=== PATIENT | male | born 1950 | race Caucasian/White ===

== ENCOUNTER 2018-08-25 10:00 | Inpatient (IN) | payer OTHER ==
[~2018-08-25 10:00] MED LIST: BACITRACIN 50,000 UNITS/10 ML SYR IRR ONE; BUPIVACAINE 0.25% 30 ML SDV ONE; BUPIVACAINE/EPI 0.25% 30 ML SDV ONE; CHLORHEXIDINE GLUC HIBICLENS 118 ML BTL TP ONE; THROMBIN (BOVINE) 5,000 UNIT VIAL TP ONE; TRANEXAMIC ACID 1,000 MG in NS 100 ML IV ONE
[2018-08-25] MEDS ORDERED: morphINE PF 0.2 MG in SYRINGE INTRATHECAL 1 SYR IT ONE (10:29)
[2018-08-25] MEDS ORDERED: ACETAMINOPHEN 500 MG TAB PO ONE (10:29)
[2018-08-25] MEDS ORDERED: ceFAZolin 2 GM/DEXTROSE 100 ML IV ONE (10:29)
[2018-08-25] MEDS ORDERED: GABAPENTIN 300 MG CAP PO ONE (10:29)
[2018-08-25] MEDS ORDERED: fentaNYL 50 MCG in SYRINGE INTRATHECAL 1 SYR IT ONE (10:29)
[2018-08-25] MEDS ORDERED: LR 1,000 ML IV ONE (10:41)
[2018-08-25] MEDS ORDERED: LIDOCAINE 1% 2 ML INJ ID PRN (10:41)
[2018-08-25] MEDS ORDERED: LIDOCAINE 1% 2 ML INJ ONE (10:57)
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
--- NOTE | 2018-08-25 14:24 | PDHPUP ---
History & Physical Update H&P update statement: This history and physical update is based on an assessment of the patient which was completed after admission or registration (within 24 hours), but prior to the surgery/procedure. H&P update: H&P reviewed & patient examined, no change in patient's condition since H&P completed
[2018-08-25] MEDS ORDERED: MIDAZOLAM 2 MG/2 ML VIAL ONE (14:45)
[2018-08-25] MEDS ORDERED: ROCURONIUM 50 MG/5 ML VIAL ONE (14:52)
[2018-08-25] MEDS ORDERED: fentaNYL 100 MCG/2 ML INJ ONE ×2 (14:52→18:52)
[2018-08-25] MEDS ORDERED: PROPOFOL/EMULSION 500 MG/50 ML BOTTLE IV ONE (14:52)
[2018-08-25] MEDS ORDERED: REMIFENTANIL HCL 1 MG VIAL ONE (14:52)
[2018-08-25] MEDS ORDERED: PROPOFOL 200 MG/20 ML VIAL ONE (14:52)
[2018-08-25] MEDS ORDERED: ONDANSETRON 4 MG/2 ML VIAL ONE (14:53)
[2018-08-25] MEDS ORDERED: LIDOCAINE 2% 5 ML SDV ONE (14:56)
[2018-08-25] MEDS ORDERED: DEXAMETHASONE 4 MG/ML VIAL ONE (15:08)
[2018-08-25] MEDS ORDERED: PHENYLEPHRINE HCL 100 MCG/ML SYR ONE ×2 (15:10→15:53)
[2018-08-25] MEDS ORDERED: ePHEDrine SULFATE 25 MG/5 ML SYR ONE (15:47)
[2018-08-25] MEDS ORDERED: DIAZEPAM 10 MG/2 ML SYR IVP PRN (16:07)
[2018-08-25] MEDS ORDERED: HYDROCODONE/APAP 5/325 TAB PO PRN (16:07)
[2018-08-25] MEDS ORDERED: oxyCODONE IR 5 MG TAB PO PRN (16:07)
[2018-08-25] MEDS ORDERED: ONDANSETRON 4 MG/2 ML VIAL IVP PRN ×2 (16:07→17:59)
[2018-08-25] MEDS ORDERED: LR 500 ML IV PRN (16:07)
[2018-08-25] MEDS ORDERED: PROMETHAZINE HCL 25 MG/ML INJ IVP PRN (16:07)
[2018-08-25] MEDS ORDERED: ACETAMINOPHEN 500 MG TAB PO PRN (16:07)
[2018-08-25] MEDS ORDERED: PHENYLEPHRINE HCL 100 MCG/ML SYR IVP PRN (16:07)
[2018-08-25] MEDS ORDERED: NALOXONE HCL 0.4 MG/ML INJ IVP PRN ×2 (16:07→17:59)
[2018-08-25] MEDS ORDERED: MIDAZOLAM 2 MG/2 ML VIAL IVP ONE (16:07)
[2018-08-25] MEDS ORDERED: PHENYLEPHRINE 10 MG/ML SDV ONE (16:42)
[2018-08-25] MEDS ORDERED: diphenhydrAMINE 25 MG CAP PO PRN (17:59)
[2018-08-25] MEDS ORDERED: BISACODYL 10 MG SUPP PR PRN (17:59)
[2018-08-25] MEDS ORDERED: MAGNESIUM HYDROXIDE 30 ML UDCUP PO PRN (17:59)
[2018-08-25] MEDS ORDERED: ONDANSETRON DISINTEGRATING 4 MG TAB PO PRN (17:59)
[2018-08-25] MEDS ORDERED: LACTULOSE 20 GM/30 ML UDCUP PO PRN (17:59)
--- NOTE | 2018-08-25 18:06 | SOAPPROG ---
SOAP Progress Note Assessment/Plan: Assessment: 68 yo M sp L4/5 TLIF Plan: stable to 3N PT/OT LSO brace when out of bed lovenox starts POD #1 please call with neuro changes 08/25/18 18:05 Subjective: + back pain, no leg pain, no weakness. Objective: Vital Signs Temp Pulse Resp BP Pulse Ox 37.3 C 69 16 157/74 H 94 08/25/18 11:51 08/25/18 16:23 08/25/18 16:23 08/25/18 16:23 08/25/18 16:23 Laboratory Results 08/25/18 11:22 somnolent PERRL, EOMI, no facial droop REAGAN x 4 + light touch ICD10 Worksheet Patient Problems: Problems Problem Status Onset Fusion of spine of lumbar region Acute - ICD10 Problem Qualifiers (1) Fusion of spine of lumbar region
[2018-08-25] MEDS: fentaNYL 100 MCG/2 ML INJ IVP PRN ×2 (18:54→19:16)
[2018-08-25] MEDS: NS 1,000 ML IV SCH (20:45)
[2018-08-25] MEDS: FAMOTIDINE 20 MG TAB PO SCH (22:09)
[2018-08-25] MEDS: POLYETHYLENE GLYCOL 3350 17 GM PKT PO SCH (22:10)
[2018-08-25] MEDS: SENNOSIDES/DOCUSATE SODIUM TAB PO SCH (22:10)
--- NOTE | 2018-08-25 22:12 | GOP ---
[f rep st] OPERATIVE REPORT DATE OF OPERATION: 08/25/2018 SURGEON: Maximo Jackson MD NEUROSURGEON: Maximo Jackson MD TYPEWRITER MECHANIC: KUN Underwood. ANESTHESIA: General endotracheal. PREOPERATIVE DIAGNOSIS: 1. Grade 1 unstable spondylolisthesis at the L4-5 level. 2. Severe lateral recess and foraminal impingement. 3. Intractable low back pain and right lower extremity radicular symptoms. 4. Failed conservative care. POSTOPERATIVE DIAGNOSIS: 1. Grade 1 unstable spondylolisthesis at the L4-5 level. 2. Severe lateral recess and foraminal impingement. 3. Intractable low back pain and right lower extremity radicular symptoms. 4. Failed conservative care. PROCEDURE PERFORMED: 1. Mini open exposure for right-sided far lateral transpedicular decompression at the L4-5 level wit h L4-5 posterior nonsegmental (pedicle screw and axle device) fixation and posterolateral fusion with local autograft and bone morphogenic protein. 2. L4-5 posterior/transforaminal lumbar interbody fusion with 2 structural PEEK interbody spacers, l ocal autograft and bone morphogenic protein. 3. Use of intraoperative microscopy, fluoroscopy, and computer volumetric stereotactic navigation wi th intraoperative neurophysiologic testing. 4. Injection of intrathecal narcotic analgesics and subcutaneous and intramuscular local anesthesia for postoperative pain control. FINDINGS: ESTIMATED BLOOD LOSS: Estimated 75 cc. INDICATIONS: The patient is a 68-year-old male with intractable back pain and right lower extremity radicular symptoms secondary to a grade 1 spondylolisthesis with hypermobility/instability and severe lateral recess and foraminal impingement requiring destabilizing decompression and fixation. DESCRIPTION OF PROCEDURE: After informed consent was obtained, the patient was taken to the operatin g room and placed in the prone position on the Mahesh table. The lumbosacral area was prepped and d raped in a sterile fashion. After fluoroscopic localization, the correct levels of the subcutaneous and intramuscular tissues were infiltrated with local anesthesia. A midline linear incision was then created over the L4-5 spinous processes. This was carried down to the fascial layer, which was then incised using monopolar electrocautery and carried in the subfascial plane along the spinous process es and lamina bilaterally. Intraoperative fluoroscopy was again utilized to verify the correct level s. Following this, the dissection was carried out laterally over the facet joints. The microscope w as then brought in and a far lateral transpedicular decompression was performed under high-power micr oscopy using the [employer] drill system, matchstick fluted bur, and Kerrison rongeurs. There was sever e lateral recess and foraminal impingement that required very meticulous dissection for approximately 2-3 times as long as normal. Eventually, I achieved an excellent decompression and then brought the [employer] neuronavigational system in and using computer volumetric stereotactic navigation, pedicle s crews were placed on the right at the L4 and L5 levels. Each individual screw was tested neurophysio logically with monopolar electrostimulation and interpretation of the potentials by the surgeon. A r od was then placed and secured under distraction, during which time a complete diskectomy was perform ed with preparation of the endplates and placement of 2 structural PEEK interbody spacers, local auto graft, and bone morphogenic protein for an L4-5 posterior/transforaminal lumbar interbody fusion. Th e screw and marybeth system were then placed at a slight amount of compression in order to facilitate bony union and to minimize the potential for posterior graft migration. An axial device was then placed in lieu of left-sided pedicle screws in order to maximize the bony surface area for the posterolatera l fusion on the left side and to avoid the additional risks and complications for pedicle screws on t hat side. Following this, the remaining lamina and facet joint on the left side were extensively dec orticated and the residual local autograft, along with bone morphogenic protein was placed out latera lly for posterolateral fusion at the L4-5 level. 200 mcg of Duramorph, along with 50 mcg of fentanyl were injected intrathecally for postoperative pain control. After re-verification of good position of the screws, marybeth, interspinous process clamp, and interbody spacers using biplanar fluoroscopy. A drain was placed. The subcutaneous and intramuscular tissues were re-infiltrated with local anesthes ia and the wound was closed in a layered fashion using interrupted Vicryl sutures, followed by Steri- Strips on the skin. COMPLICATIONS: None. DISPOSITION: The patient is currently in the process being repositioned for extubation. /[id number]/MODL
[2018-08-25] MEDS: ceFAZolin 2 GM/DEXTROSE 100 ML IV SCH (23:22)
[2018-08-25] MEDS: oxyCODONE IR 5 MG TAB PO PRN (23:25)
[2018-08-26 05:01] LABS: PLATELET COUNT 219 10^3/uL (150-400)
[2018-08-26] MEDS: NS 1,000 ML IV SCH (05:30)
[2018-08-26] MEDS: ENOXAPARIN 40 MG/0.4 ML SYR SC SCH (07:52)
[2018-08-26] MEDS: POLYETHYLENE GLYCOL 3350 17 GM PKT PO SCH ×3 (07:52→21:28)
[2018-08-26] MEDS: SENNOSIDES/DOCUSATE SODIUM TAB PO SCH ×2 (07:53→21:26)
[2018-08-26] MEDS: oxyCODONE IR 5 MG TAB PO PRN ×3 (07:53→17:15)
[2018-08-26] MEDS: FAMOTIDINE 20 MG TAB PO SCH ×2 (07:53→21:23)
[2018-08-26] MEDS: ceFAZolin 2 GM/DEXTROSE 100 ML IV SCH (07:54)
--- NOTE | 2018-08-26 08:11 | PDMN ---
Medical Necessity Medical necessity: [facility] IP only surgery; cpt 24565 L4/5 TLIF
--- NOTE | 2018-08-26 09:00 | SOAPPROG ---
SOAP Progress Note Assessment/Plan: Assessment: POD #1 sp L4/5 TLIF. Doing well. Slight increase in tingling in top of right foot, otherwise no new deficits or changes Plan: Lovenox to start today. Continue BLAINE drain Needs lumbar xrays today PT/OT 08/26/18 08:57 08/26/18 08:59 Subjective: Lying in bed, comfortable. Awake, alert and pleasant. Objective: Vital Signs Temp Pulse Resp BP Pulse Ox 36.8 C 72 18 113/52 L 93 08/26/18 07:28 08/26/18 07:28 08/26/18 07:28 08/26/18 07:28 08/26/18 07:28 Laboratory Results 08/26/18 04:32 08/26/18 04:32 08/25/18 08/26/18 08/27/18 05:59 05:59 05:59 Intake Total 2900 Output Total 1100 Balance 1800 Neuro: ADAM, sens +LT, with increased tingling from baseline in top of right foot 5/5 throughout Dressing: CDI BLAINE: 150 ml ICD10 Worksheet Patient Problems: Problems Problem Status Onset Fusion of spine of lumbar region Acute
[2018-08-26] MEDS: FUROSEMIDE 20 MG TAB PO SCH (11:10)
[2018-08-26] MEDS: METHOCARBAMOL 750 MG TAB PO PRN ×2 (11:10→17:15)
[2018-08-26] MEDS: LISINOPRIL 20 MG TAB PO SCH (11:11)
[2018-08-26] MEDS: GABAPENTIN 300 MG CAP PO SCH ×3 (12:06→21:23)
--- NOTE | 2018-08-26 13:17 | CPEKG ---
Test Reason : OPEN Blood Pressure : / mmHG Vent. Rate : 070 BPM Atrial Rate : 070 BPM P-R Int : 118 ms QRS Dur : 131 ms QT Int : 403 ms P-R-T Axes : -30 075 122 degrees QTc Int : 435 ms Incomplete analysis due to missing data in precordial lead(s) Sinus rhythm Right bundle branch block Repol abnrm suggests ischemia, diffuse leads Missing lead(s): V6 Confirmed by Rick Gordillo ([id number]) on 08/26/2018 1:16:47 PM Referred By: BANDAR LEW Confirmed By:Rick Gordillo
--- NOTE | 2018-08-26 13:17 | CPEKG ---
Test Reason : OPEN Blood Pressure : / mmHG Vent. Rate : 073 BPM Atrial Rate : 070 BPM P-R Int : 144 ms QRS Dur : 130 ms QT Int : 400 ms P-R-T Axes : -12 074 067 degrees QTc Int : 441 ms Sinus rhythm Supraventricular bigeminy Right bundle branch block Nonspecific T abnormalities, lateral leads Confirmed by Rick Gordillo ([id number]) on 08/26/2018 1:16:59 PM Referred By: BNADAR LEW Confirmed By:Rick Gordillo
[2018-08-26] MEDS ORDERED: PNEUMOC 13-VAL CONJ-DIP CRM/PF 0.5 ML SYR (PREVNAR 13) IM ONE (14:57)
--- NOTE | 2018-08-26 15:09 | ASMTCMCOM ---
CM Note CM Note Notes: Pt had planned L4/5 TLIF, resides with spouse in [place]. OT rec home, PT rec home/outpatient. Anticipate pt will d/c when medically stable, no CM d/c needs identified CM available for changes/needs. Date Signed: 08/26/2018 03:09 PM Electronically Signed By:MICHAEL Ya
[2018-08-26] MEDS: metFORMIN HCL 500 MG TAB PO SCH (17:14)
[2018-08-26] MEDS: ATORVASTATIN CALCIUM 40 MG TAB PO SCH (21:23)
[2018-08-27] MEDS: oxyCODONE IR 5 MG TAB PO PRN ×4 (04:30→23:48)
[2018-08-27] MEDS: METHOCARBAMOL 750 MG TAB PO PRN ×3 (04:30→23:48)
[2018-08-27] MEDS: HYDROmorphONE/DILAUDID 1 MG/ML INJ IVP PRN ×2 (06:47→11:48)
--- NOTE | 2018-08-27 07:52 | SOAPPROG ---
SOAP Progress Note Assessment/Plan: Assessment: 68 yo M POD #2 L4/5 TLIF Plan: stable and doing well overall :) post op x-rays look great PT/OT LSO brace when out of bed lovenox/scd/tereso for dvt prophylaxis please call with neuro changes discharge when pain improved 08/25/18 18:05 08/27/18 07:51 Subjective: + back pain, no hip pain, no leg pain or weakness. Objective: Vital Signs Temp Pulse Resp BP Pulse Ox 37.3 C 73 17 127/57 H 90 L 08/27/18 07:23 08/27/18 07:23 08/27/18 07:23 08/27/18 07:23 08/27/18 07:23 Laboratory Results 08/26/18 04:32 08/26/18 04:32 08/26/18 08/27/18 08/28/18 05:59 05:59 05:59 Intake Total 2900 400 Output Total 1100 730 Balance 1800 -330 AAOX4, +FC PERRL, EOMI, no facial droop 5/5 + light touch C/D/I ICD10 Worksheet Patient Problems: Problems Problem Status Onset Fusion of spine of lumbar region Acute - ICD10 Problem Qualifiers (1) Fusion of spine of lumbar region
[2018-08-27] MEDS: metFORMIN HCL 500 MG TAB PO SCH ×2 (08:37→18:29)
[2018-08-27] MEDS: GABAPENTIN 300 MG CAP PO SCH ×3 (08:39→21:54)
[2018-08-27] MEDS: SENNOSIDES/DOCUSATE SODIUM TAB PO SCH ×2 (08:40→21:55)
[2018-08-27] MEDS: FUROSEMIDE 20 MG TAB PO SCH (08:42)
[2018-08-27] MEDS: FAMOTIDINE 20 MG TAB PO SCH ×2 (08:44→21:54)
[2018-08-27] MEDS: ENOXAPARIN 40 MG/0.4 ML SYR SC SCH (08:46)
[2018-08-27] MEDS: POLYETHYLENE GLYCOL 3350 17 GM PKT PO SCH ×3 (08:46→21:55)
[2018-08-27] MEDS: LISINOPRIL 20 MG TAB PO SCH (08:47)
[2018-08-27] MEDS: ACETAMINOPHEN 325 MG TAB PO PRN (11:43)
[2018-08-27] MEDS: ATORVASTATIN CALCIUM 40 MG TAB PO SCH (21:54)
[2018-08-28] MEDS: HYDROmorphONE/DILAUDID 1 MG/ML INJ IVP PRN (02:28)
[2018-08-28 07:46] VITALS: BP 112/51
--- NOTE | 2018-08-28 07:59 | SOAPPROG ---
SOAP Progress Note Assessment/Plan: Assessment: 68 yo M POD #3 L4/5 TLIF Plan: stable and doing well overall :) post op x-rays look great PT/OT LSO brace when out of bed lovenox/scd/tereso for dvt prophylaxis dc home today please call with neuro changes discharge when pain improved 08/25/18 18:05 08/27/18 07:51 08/28/18 07:59 Subjective: back pain improving, no leg pain, no weakness. Objective: Vital Signs Temp Pulse Resp BP Pulse Ox 36.8 C 68 17 112/51 L 96 08/28/18 07:44 08/28/18 07:44 08/28/18 07:44 08/28/18 07:44 08/28/18 07:44 Laboratory Results 08/26/18 04:32 08/26/18 04:32 08/27/18 08/28/18 08/29/18 05:59 05:59 05:59 Intake Total 400 500 Output Total 730 2360 300 Balance -330 -2360 200 AAOx4, +FC PERRL, EOMI, no facial droop 5/5 + light touch C/D/I ICD10 Worksheet Patient Problems: Problems Problem Status Onset Fusion of spine of lumbar region Acute - ICD10 Problem Qualifiers (1) Fusion of spine of lumbar region
[2018-08-28] MEDS: LISINOPRIL 20 MG TAB PO SCH (08:48)
[2018-08-28] MEDS: GABAPENTIN 300 MG CAP PO SCH (08:49)
[2018-08-28] MEDS: metFORMIN HCL 500 MG TAB PO SCH (08:49)
[2018-08-28] MEDS: FAMOTIDINE 20 MG TAB PO SCH (08:49)
[2018-08-28] MEDS: FUROSEMIDE 20 MG TAB PO SCH (08:50)
[2018-08-28] MEDS: ENOXAPARIN 40 MG/0.4 ML SYR SC SCH (08:51)
[2018-08-28] MEDS: POLYETHYLENE GLYCOL 3350 17 GM PKT PO SCH (09:02)
[2018-08-28] MEDS: SENNOSIDES/DOCUSATE SODIUM TAB PO SCH (09:02)
[2018-08-28] MEDS: ACETAMINOPHEN 325 MG TAB PO PRN (09:03)
[2018-08-28] MEDS: METHOCARBAMOL 750 MG TAB PO PRN (09:03)
[2018-08-28] MEDS ORDERED: PNEUMOC 13-VAL CONJ-DIP CRM/PF 0.5 ML SYR (PREVNAR 13) IM ONE (10:02)
[2018-08-28] MEDS: oxyCODONE IR 5 MG TAB PO PRN (11:00)
[2018-09-14] MEDS ORDERED: PHENYLEPHRINE 10 MG/ML SDV ONE (00:55)
[2018-09-14] MEDS ORDERED: ePHEDrine SULFATE 25 MG/5 ML SYR ONE (00:55)
== END 2018-08-28 11:07 | disposition home or self-care (01) | DRG 455 ==
LOC: F3N 10:00
PROVIDERS: ADMIT Neurological Surgery; ATTEND Neurological Surgery
PROC: 0SG00AJ Fusion of Lumbar Vertebral Joint with Interbody Fusion Device, Posterior Approach, Anterior Column, Open Approach (ICD-10-PCS; principal; 2018-08-25 11:45)
PROC: 0SG0071 Fusion of Lumbar Vertebral Joint with Autologous Tissue Substitute, Posterior Approach, Posterior Column, Open Approach (ICD-10-PCS; principal; 2018-08-25 11:45)
PROC: 4A1004G Monitoring of Central Nervous Electrical Activity, Intraoperative, Open Approach (ICD-10-PCS; principal; 2018-08-25 11:45)
PROC: 0ST20ZZ Resection of Lumbar Vertebral Disc, Open Approach (ICD-10-PCS; principal; 2018-08-25 11:45)
PROC: 00NY0ZZ Release Lumbar Spinal Cord, Open Approach (ICD-10-PCS; principal; 2018-08-25 11:45)
PROC: 8E0WXBF Computer Assisted Procedure of Trunk Region, With Fluoroscopy (ICD-10-PCS; principal; 2018-08-25 11:45)
DX: M43.16 Spondylolisthesis, lumbar region (principal); M51.16 Intervertebral disc disorders with radiculopathy, lumbar region; M51.36 Other intervertebral disc degeneration, lumbar region; M51.26 Other intervertebral disc displacement, lumbar region; I10 Essential (primary) hypertension; I45.10 Unspecified right bundle-branch block; G47.33 Obstructive sleep apnea (adult) (pediatric); E11.9 Type 2 diabetes mellitus without complications; E66.3 Overweight; K44.9 Diaphragmatic hernia without obstruction or gangrene; Z87.891 Personal history of nicotine dependence; Z23 Encounter for immunization
CPT/HCPCS: 97116-GP; 97161-GP; 97166-GO; 97530-GP; 97535-GO; C1713; G0009; J0690; J1100; J1170; J1650; J2250; J2274; J2370; J2405; J2704; J3010

== ENCOUNTER 2018-08-30 18:22 | Inpatient (IN) | payer OTHER ==
[2018-08-30] MEDS ORDERED: ONDANSETRON 4 MG/2 ML VIAL IVP ONE (19:04)
[2018-08-30] MEDS ORDERED: NS 1,000 ML IV ONE (19:04)
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
[2018-08-30] MEDS ORDERED: NS 2,400 ML IV ONE (19:06)
[2018-08-30] MEDS ORDERED: ACETAMINOPHEN 500 MG TAB PO ONE (19:06)
[2018-08-30 19:12] LABS: PLATELET COUNT 376 10^3/uL (150-400)
[2018-08-30 19:39] LABS: INR 1.15 (0.83-1.16); PROTIME(PATIENT) 14.2 SEC (12.0-15.0)
[2018-08-30] MEDS ORDERED: ONDANSETRON 4 MG/2 ML VIAL IVP PRN (23:16)
[2018-08-30] MEDS ORDERED: ACETAMINOPHEN 650 MG SUPP PR PRN (23:16)
[2018-08-30] MEDS ORDERED: LORazepam 0.5 MG TAB PO PRN (23:16)
[2018-08-30] MEDS ORDERED: HYDROmorphONE/DILAUDID 1 MG/ML INJ IVP PRN (23:16)
[2018-08-30] MEDS ORDERED: D50W 25 GM/50 ML VIAL IVP PRN (23:24)
[2018-08-30] MEDS ORDERED: ONDANSETRON DISINTEGRATING 4 MG TAB ONE (23:26)
[2018-08-30] MEDS ORDERED: ACETAMINOPHEN 325 MG TAB ONE (23:26)
[2018-08-31] MEDS: ACETAMINOPHEN 325 MG TAB PO PRN ×4 (00:01→21:22)
[2018-08-31] MEDS: NS 1,000 ML IV SCH ×2 (00:01→09:58)
[2018-08-31] MEDS: ONDANSETRON DISINTEGRATING 4 MG TAB PO PRN ×2 (00:02→21:12)
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
[2018-08-31 05:06] LABS: PLATELET COUNT 281 10^3/uL (150-400)
[2018-08-31] MEDS: INSULIN REGULAR HUMAN 100 UNIT/ML UNIT SC SCH ×4 (08:35→20:27)
[2018-08-31] MEDS ORDERED: METHOCARBAMOL 750 MG TAB PO PRN (09:16)
--- NOTE | 2018-08-31 10:52 | ASMTCASEMG ---
Living Arrangements What is your living Answers: With Spouse arrangement? Who do you live with? Type Of Residence What kind of residence do Answers: Apartment you live in? Discharge Plan Comments Coordination Status Comments Notes: Patient is a 68yo male who is being admitted OBS for nausea, vomiting, diarrhea, fever, and dehydration. No therapies ordered at this time. Likely patient will discharge independent. CM will follow. Date Signed: 08/31/2018 10:51 AM Electronically Signed By:Elsa Mccarthy LCSW
[2018-08-31] MEDS: VANCOMYCIN 125 MG/2.5 ML UDL PO SCH ×3 (13:22→21:12)
[2018-08-31] MEDS ORDERED: FUROSEMIDE 40 MG/4 ML VIAL IVP ONE (14:22)
--- NOTE | 2018-08-31 15:54 | HOSPPROG ---
Hospitalist Progress Note Assessment/Plan: 68-year-old male recently underwent a L4-5 TLIF admitted with NVD found to have cdiff. Cdiff-was recently admitted for back surgery. May have gotten prophylactic abx which could have predisposed him to CDI. -start vancomycin PO 125 QID -contact precautions. # nausea, vomiting, diarrhea -I reviewed the plain film obtained today which does not show any ileus or obstruction. Likely his symptoms are related to his cdiff infection. #Fever (Acute) -38.0 F - no further fevers. suspect this is secondary to clostridium infection. #Dehydration (Acute) - IV fluids overnight. # anemia-postoperative. No evidence of active bleeding at this time. Continue to monitor with a.m. CBC. #Benign essential HTN - Hold diuretic in setting of diarrhea, but cont ken, and norvasc. #Dm 2-SSI for now. #JUAN MANUEL - oxygen supplementation p.r.n.. #Chronic pain - continue patient's home medications including Oxy, gabapentin, Robaxin. # HLD-continue statin when med rec Status-post L4-[address] Galdamez earlier today. Fluids- IV saline Lytes- WNl Nutrition- regular diet, he seems to be tolerating it fine PPX-SCDs. ambulate. Cor status-full Dispo- inpatient for cdiff infection. Subjective: abdomen queasy. Objective: Vital Signs Temp Pulse Resp BP Pulse Ox 37.1 C 81 18 127/57 H 94 08/31/18 07:18 08/31/18 07:18 08/31/18 07:18 08/31/18 07:18 08/31/18 07:18 Laboratory Results 08/31/18 04:40 08/31/18 04:40 08/30/18 08/31/18 09/01/18 05:59 05:59 05:59 Intake Total 3300 Balance 3300 PT 14.2 SEC (12.0-15.0) 08/30/18 18:55 INR 1.15 (0.83-1.16) 08/30/18 18:55 - Physical Exam Constitutional: no apparent distress, appears nourished, not in pain Eyes: PERRL, anicteric sclera, EOMI Ears, Nose, Mouth, Throat: moist mucous membranes, hearing normal, ears appear normal, no oral mucosal ulcers Cardiovascular: regular rate and rhythym, no murmur, rub, or gallop Respiratory: no respiratory distress, no rales or rhonchi, clear to auscultation Gastrointestinal: normoactive bowel sounds, soft, non-tender abdomen, no palpable masses Genitourinary: no bladder fullness, no bladder tenderness, no renal bruits Skin: no rashes or abrasions, no fluctuance, no induration Musculoskeletal: full muscle strength, no muscle tenderness, normal joint ROM Neurologic: AAOx3, sensation intact bilaterally Psychiatric: interacting appropriately, not anxious, not encephalopathic, thought process linear Lymph, Heme, Immunologic: no cervical LAD, no supraclavicular LAD ICD10 Worksheet Patient Problems: Problems Problem Status Onset Dehydration Acute Fever Acute Vomiting and diarrhea Acute Fusion of spine of lumbar region Acute
[2018-08-31] MEDS: GABAPENTIN 300 MG CAP PO SCH ×2 (16:17→21:12)
[2018-08-31] MEDS: ATORVASTATIN CALCIUM 40 MG TAB PO SCH (20:26)
--- NOTE | 2018-08-31 21:09 | GCON ---
[f rep st] CONSULTATION NEUROSURGICAL CONSULTATION DATE OF CONSULTATION: 08/31/2018 REASON FOR CONSULTATION: Abdominal pain status post L4-5 lumbar fusion on 08/25/2018. HISTORY OF PRESENT ILLNESS: The patient is a pleasant 68-year-old male who recently underwent an L4- 5 transforaminal lumbar interbody fusion with Dr. Jackson on 08/25/2018. He tolerated the surg ical procedure well and was discharged home uneventfully. On 08/30/2018, the patient presented to [facility] Emergency Department at [facility] complaining of worsening nausea and vomiting as well as diarrhea and chills that started earlier in the day. He was seen in the ER and ultimately admitted t o the floor to the Medicine Service for medical management of his apparent gastroenteritis. The patient is seen on 08/31/2018 in consultation. He is lying comfortably in bed and denies any num bness, tingling, or weakness in his legs. He states that his preoperative back and leg pain have res olved since the surgery. He has not had any difficulty caring for his incision. Yesterday, he was f eeling nauseated with vomiting and diarrhea; today, he is still feeling somewhat nauseated but has denis d no further bowel movement since yesterday afternoon. REVIEW OF SYSTEMS: Negative other than mentioned in the HPI. PHYSICAL EXAMINATION: GENERAL: Pleasant, tired-appearing, 68-year-old male in no apparent distress. HEAD, EYES, EARS, NOSE, AND THROAT: Within normal limits. EXTREMITIES: Within normal limits. Hi s incision is clean, dry, and intact with Steri-Strips remaining intact. There is no erythema or alyssa inage. NEUROLOGIC: He is awake, alert, and oriented x4. Cranial nerves 2 through 12 are intact to gross examination. Speech is fluent. Tongue is midline. Spinal and accessory muscles are intact. He has equal and symmetric strength of the bilateral upper and lower extremities with normal sensatio n in all dermatomal distributions of the bilateral upper and lower extremities. DATA REVIEWED: LAB RESULTS: White blood cell count 6.77, hemoglobin 11.0, hematocrit 33.0, platelet s are 281,000. Sodium 136, potassium 3.9, chloride 106, carbon dioxide 24, BUN 14, creatinine 0.7. Urinalysis is negative for leukocyte esterase or bacteria or white blood cells. Blood cultures are pending. Stool sample is positive for C diff. Abdominal x-ray does not show any evidence of ileus or obstruction. PAST MEDICAL HISTORY: Diabetes, type 2; hypertension; hyperlipidemia; chronic back pain; obstructive sleep apnea. SURGICAL HISTORY: Status post L4-5 TLIF on 08/25/[address] Jackson. IMPRESSION: This is a 68-year-old male who underwent an L4-5 uncomplicated transforaminal lumbar int erbody fusion on 08/25/2018 with resolution of preoperative symptoms who presented on 08/30/2018 with symptoms consistent with gastroenteritis including nausea, vomiting, and diarrhea. Imaging studies of the abdomen demonstrate no evidence of ileus or obstruction; however, the patient is positive for C diff, and he is currently being treated with vancomycin by the Medicine Team. Neurologically, the patient remains intact, stable, and doing well. PLAN: All above issues were discussed with Dr. Jackson on the patient. At this time, we will defer to Medicine for their continued management of this gentleman. We will continue to follow along with his care during his hospitalization. /[id number]/MODL
[2018-09-01] MEDS: VANCOMYCIN 125 MG/2.5 ML UDL PO SCH ×4 (06:47→20:54)
[2018-09-01] MEDS ORDERED: NITROGLYCERIN 0.4 MG BTL SL PRN (07:29)
[2018-09-01] MEDS ORDERED: MAG HYDROX/AL HYDROX/SIMETH 30 ML UDCUP PO PRN (07:44)
--- NOTE | 2018-09-01 08:11 | NEUSURGPN ---
Assessment/Plan: Assessment: 68 yr old male s/p L4-[address] Galdamez on 08/25/18, returned/ admitted with Cdiff Plan: -Appreciate Medicines management for GI -Doing well in regards to lumbar surgery -Neurosurgery will sign off and have patient follow up as scheduled for post operative visit -Discussed patient with Dr Galdamez -Please call neurosurgery with any questions/concerns Subjective: denies any back or leg symptoms Objective: AxOx4 MAEx4 09/04 BLE Incision CDI with steri strips Neuro Check Frequency: per routine Urinary Catheter in Place: No - Physician Discussed Patient with : Renetta Neurosurgery Physical Exam - Vitals, I&O, Labs I and O 08/31/18 09/01/18 09/02/18 05:59 05:59 05:59 Intake Total 3300 450 Balance 3300 450 Weight 81.647 kg Intake: Oral (ml) 300 450 IV Infused (ml) 3000 Ns 1,000 ml @ 100 mls/hr 600 IV CONT HUSEYIN Rx#: [id number] Other: Intake Quantity Yes Sufficient Number of Voids 1 Toilet 2 4 Number of Stools Toilet 0 1 Vital Signs Temp Pulse Resp BP Pulse Ox 37.2 C 110 H 12 133/62 H 95 09/01/18 06:27 09/01/18 06:27 09/01/18 06:27 09/01/18 06:27 09/01/18 06:27 Laboratory Results 08/31/18 04:40 08/31/18 04:40 ICD10 Worksheet Patient Problems: Problems Problem Status Onset Dehydration Acute Fever Acute Vomiting and diarrhea Acute Fusion of spine of lumbar region Acute
--- NOTE | 2018-09-01 08:12 | HOSPPROG ---
Hospitalist Progress Note Assessment/Plan: Hospitalist night float note Notified by RN that patient with complaints of substernal chest pain and noted irregular rhythm. Patient states that pain started approximately 1:00 a.m. And worse with lying down. Improved with inspiration. Patient reports that his pain worsened at approximately 6:30 a.m. When he was given a dose of oral vancomycin. This reproduced the exact same chest pain. EKG was showing normal sinus rhythm with bigeminy and RBBB with report changes. Reviewed EKG from August 2018 appears similar. Patient placed on lunchroom monitor. After evaluating patient suspect either development of some esophagitis or esophageal spasm given his pain exacerbated immediately after ingesting oral Vanco. Will check a troponin. Maalox is been ordered. [facility] Villarreal who will follow up. Objective: Vital Signs Temp Pulse Resp BP Pulse Ox 37.2 C 110 H 12 133/62 H 95 09/01/18 06:27 09/01/18 06:27 09/01/18 06:27 09/01/18 06:27 09/01/18 06:27 Laboratory Results 08/31/18 04:40 08/31/18 04:40 08/31/18 09/01/18 09/02/18 05:59 05:59 05:59 Intake Total 3300 450 Balance 3300 450 PT 14.2 SEC (12.0-15.0) 08/30/18 18:55 INR 1.15 (0.83-1.16) 08/30/18 18:55 ICD10 Worksheet Patient Problems: Problems Problem Status Onset Dehydration Acute Fever Acute Vomiting and diarrhea Acute Fusion of spine of lumbar region Acute
[2018-09-01] MEDS: GABAPENTIN 300 MG CAP PO SCH ×3 (09:34→20:54)
[2018-09-01] MEDS: PANTOPRAZOLE SODIUM 40 MG TAB PO SCH (09:34)
[2018-09-01] MEDS: INSULIN REGULAR HUMAN 100 UNIT/ML UNIT SC SCH ×4 (09:39→21:40)
[2018-09-01] MEDS ORDERED: METOPROLOL TARTRATE 5 MG/5 ML INJ IVP ONE (10:36)
[2018-09-01] MEDS: LISINOPRIL 20 MG TAB PO SCH (11:13)
[2018-09-01] MEDS ORDERED: METOPROLOL TARTRATE 25 MG TAB PO ONE (12:17)
[2018-09-01] MEDS ORDERED: ASPIRIN 81 MG CHEWABLE TAB PO ONE (12:24)
--- NOTE | 2018-09-01 12:52 | ECHO ---
[email or web address] [address] [address] Main: [phone] Echocardiography Examination Transthoracic Name: MARY CHICAS MR#: [id number] Study Date: 09/01/2018 Study Time: 10:29 AM Date of : 1950 Age: 68 year(s) Height: 170.2 cm (67 in.) Weight: 81.65 kg (180 lb.) BSA: 1.93 m2 Gender: Male Examination: Echo Contrast: Image Quality: Adequate Rhythm: Heart Rate: BP: 116 mmHg/48 mmHg Indication: Chest Pain, Abnormal EKG Procedure Staff Referring Physician: Accountant Controller: Olga Vidal [facility] Reading Physician: Rodney Bolden MD Requesting Provider: Ordering Physician: Yunior Pisano NP Indication: Chest Pain, Abnormal EKG Measurements Chambers AV/MV Label Value Normal Value Label Value Normal Value LVOTd 1.7 cm (1.9cm - 2.1cm) AV PGmax 18 mmHg LVOT VTI 27.8 cm (18cm - 22cm) AV PGmean 11 mmHg LVDd, 2D 4.1 cm (4.2cm - 5.9cm) AV Vmax 2.12 m/s LVDs, 2D 2.6 cm (2.1cm - 4cm) NIK (VTI) 1.4 cm2 IVSd, 2D 1.3 cm (0.6cm - 1.1cm) MV E Vmax 0.9 m/s LVPWd, 2D 1.3 cm (0.6cm - 1cm) MV A Vmax 0.95 m/s LVEF, 2D 67 % (54% - 74%) MV E/A 0.95 LVOT PGmean 4 mmHg MV E/E' lateral 10.5 LVOT Vmean 1 m/s MV E/E' septal 16.2 (0.45 - 1.25) RVDd, 2D 2.5 cm (1.9cm - 3.8cm) MV DT 257 ms LADs, 2D 3.9 cm (3cm - 4cm) MV E' septal 0.06 m/s RA Area 19.8 cm2 MV PHT 0.07 s Additional Vessels MVA PHT 3 cm2 Label Value Normal Value MV E' lateral 0.09 m/s AoAsc 3.2 cm MV E/E' mean 12 AoRoot, 2D 3.5 cm (1.4cm - 2.6cm) MV PHT 74 ms IVC 1.1 cm (1.2cm - 2.3cm) MV E' mean 0.08 m/s TV/PV Label Value Normal Value Patient: MARY CHICAS Study Date: 09/01/2018 Page 1 of 3 10:29 AM RA Pressure 5 mmHg PV PGmax 5 mmHg PV Vmax, Caliper 1.13 m/s (0.6m/s - 0.9m/s) Conclusions The patient has age appropriate changes of the heart valves with mild mitral regurgitation. No significant valvular heart disease is noted. The patient has LVH as noted with no resting segmental wall motion abnormalities. A cause for the patient's chest pain is not identified on the basis of this study. These findings do not rule out flow limiting obstruction of the coronary circulation. Left Ventricle: Left ventricle is normal in size. Normal global systolic left ventricular function. EF range is estimated at 60 % - 65 %. There is mild concentric left ventricular hypertrophy. There are no regional wall motion abnormalities. Findings Left Ventricle: Left ventricle is normal in size. Normal global systolic left ventricular function. EF range is estimated at 60 % - 65 %. There is mild concentric left ventricular hypertrophy. There are no regional wall motion abnormalities. Right Ventricle: Normal size right ventricle. Right ventricular systolic function is normal. Left Atrium: The left atrium is mildly dilated. Right Atrium: The right atrium is mildly dilated. Mitral Valve: Mitral valve appears structurally normal. Mild mitral regurgitation. No mitral valve stenosis. There is mitral annular calcification. Aortic Valve: Aortic leaflets are structurally normal. No significant aortic valve regurgitation. There is no aortic stenosis. Aortic leaflets exhibit calcification. Tricuspid Valve: Pulmonary artery pressure cannot be assessed due to inadequate TR signal. Pulmonic Valve: Pulmonic valve not well visualized. Aorta: The aortic root size in 2D measures 3.5 cm. The ascending aorta measures 3.2 cm. Aorta Measurements AoRoot, 2D is 3.5 cm. IVC: The inferior vena cava is normal in size. Pericardium: Trivial pericardial effusion. Exam Details Procedure Ordered: Echo Procedure Status: Routine study Image Quality: Adequate Facility Location: Bedside Patient: MARY CHICAS Study Date: 09/01/2018 Page 2 of 3 10:29 AM (No Signature Object) Patient: MARY CHICAS Study Date: 09/01/2018 Page 3 of 3 10:29 AM [id number]
--- NOTE | 2018-09-01 16:13 | PDMN ---
Medical Necessity Medical necessity: Change to IP, as of 08/31/18, per MD & MCG M-170 Gastroenteritis; los >2 mn for ongoing management of Cdiff with N/V/D & dehydration; requiring further monitoring, abx, IV antiemetics & IVFs; hx recent L4/5 TLIF
--- NOTE | 2018-09-01 16:57 | HOSPPROG ---
Hospitalist Progress Note Assessment/Plan: 68-year-old male recently underwent a L4-5 TLIF admitted with NVD found to have cdiff. Developed subsequent chest pain on hospital day two that precluded discharge. Chest pain- Heart score at least 4, ECG with no acute ischemia but not normal, trops negative. cardiology consulted,and patient to undergo MPI/Chanel in am. Cdiff-was recently admitted for back surgery. May have gotten prophylactic abx which could have predisposed him to CDI. -cont vancomycin PO 125 QID -contact precautions. # nausea, vomiting, diarrhea -I reviewed the plain film obtained today which does not show any ileus or obstruction. Likely his symptoms are related to his cdiff infection and seem to have resolved. #Fever (Acute) -38.0 F - no further fevers. suspect this is secondary to clostridium infection. #Dehydration (Acute) - IV fluids overnight. # anemia-postoperative. No evidence of active bleeding at this time. Continue to monitor with a.m. CBC. #Benign essential HTN - Hold diuretic in setting of diarrhea, but cont ken, and norvasc. #Dm 2-SSI for now. #JUAN MANUEL - oxygen supplementation p.r.n.. #Chronic pain - continue patient's home medications including Oxy, gabapentin, Robaxin. # HLD-continue statin when med rec Status-post L4-[address] Galdamez and cleared. Fluids- IV saline Lytes- WNl Nutrition- regular diet, he seems to be tolerating it fine PPX-SCDs. ambulate. Cor status-full Dispo- inpatient for cdiff infection and chest pain rule out Subjective: chest still hurts, no sob, orthopnea or other symptoms. Objective: Vital Signs Temp Pulse Resp BP Pulse Ox 37.2 C 65 16 103/50 L 90 L 09/01/18 14:57 09/01/18 14:57 09/01/18 14:57 09/01/18 14:57 09/01/18 14:57 Laboratory Results 09/01/18 07:58 08/31/18 09/01/18 09/02/18 05:59 05:59 05:59 Intake Total 450 Balance 450 PT 14.2 SEC (12.0-15.0) 08/30/18 18:55 INR 1.15 (0.83-1.16) 08/30/18 18:55 - Physical Exam Constitutional: no apparent distress, appears nourished, not in pain Eyes: PERRL, anicteric sclera, EOMI Ears, Nose, Mouth, Throat: moist mucous membranes, hearing normal, ears appear normal, no oral mucosal ulcers Cardiovascular: regular rate and rhythym, no murmur, rub, or gallop Respiratory: no respiratory distress, no rales or rhonchi, clear to auscultation Gastrointestinal: normoactive bowel sounds, soft, non-tender abdomen, no palpable masses Genitourinary: no bladder fullness, no bladder tenderness, no renal bruits Skin: no rashes or abrasions, no fluctuance, no induration Musculoskeletal: full muscle strength, no muscle tenderness, normal joint ROM Neurologic: AAOx3, sensation intact bilaterally Psychiatric: interacting appropriately, not anxious, not encephalopathic, thought process linear Lymph, Heme, Immunologic: no cervical LAD, no supraclavicular LAD ICD10 Worksheet Patient Problems: Problems Problem Status Onset Dehydration Acute Fever Acute Vomiting and diarrhea Acute Fusion of spine of lumbar region Acute
[2018-09-01] MEDS: NS 1,000 ML IV SCH (18:29)
--- NOTE | 2018-09-01 19:52 | GCON ---
[f rep st] CONSULTATION CARDIOLOGY CONSULTATION INDICATION FOR CARDIOLOGY CONSULTATION: Chest pain and abnormal electrocardiogram. REQUESTING PHYSICIAN: Dr. Noel Gibbons of hospitalist services. HISTORY OF PRESENT ILLNESS: The patient is a pleasant 68-year-old male. He reports significant past history that includes hypertension; hyperlipidemia; borderline diabetes; previous smoker, reporting quitting 6 months ago; known history of nonflow-limiting carotid artery disease, per patient, based o ff an ultrasound exam 5 years ago; and chronic pain. He also has significant history of undergoing L 4-L[address] TL[address] Dr. Jackson on August 25. He reported he is residing in a hotel down here after re covering from his surgery. He does state that he had been doing well postoperatively, but developed nausea, vomiting, and diarrhea. As this worsened, he returned to the hospital on August 31 for evaluatio n. There, he was diagnosed with C difficile, which he has been started on vancomycin. He has also h ad blood cultures done, which preliminary results after 36 hours have shown no growth. He reports he has been feeling better, still continuing to have pain from his surgical site, but reports no histor y of chest pain or pressure until approximately early this morning, which he reports came on suddenly and describes midsternal heaviness with no associated shortness of breath but positive with diaphore sis and nausea. Symptoms did last for approximately an hour or so, then dissipated. An electrocardi ogram was done at that time which noted sinus rhythm with right bundle branch block with what appears to be premature atrial contractions, noted repolarization abnormality, T-wave changes in lateral velia ds suggesting potential ischemia. He did have a troponin level drawn, which was noted to be at 0.012 . He was placed on continuous ice skater, and since then he has been noticed to maintain sinus rhythm, but has been noted to have multiple runs of PSVT which appear to be potentially atrial tach, up to 13 beats. He is asymptomatic. At the time of my examination, he reports he is currently chest pain-free, reporting no shortness of breath. Denies any orthopnea, PND, palpitations, lightheadedne ss, near-syncope, or syncopal events. He reports no symptoms suggestive of TIA or CVA. Patient is w ith significant cardiac risk factors that include age, hypertension, hyperlipidemia, peripheral vascu lar disease (carotid artery disease), diabetes, and reporting family history of coronary artery disea se with Father dying of an GA at age 63. PAST MEDICAL HISTORY: Includes hypertension; hyperlipidemia; diabetes type 2; peripheral vascular di sease (patient reported 5 years ago having ultrasound and was told that he had mild blockage of carot id arteries); previous smoker, quitting 6 months ago; JUAN MANUEL; and chronic back pain. PAST SURGICAL HISTORY: Includes L4-L5 TLIF. FAMILY HISTORY: Positive for coronary artery disease, reporting Father of an GA at age 63. SOCIAL HISTORY: He is retired. He lives in [place]. He is . He has 1 daughter who is aries schafer and he has not seen in over 30 years. He is a former smoker, quitting 6 months ago. He rarely uses alcohol. Denies any illicit drug use. ALLERGIES: No known drug allergies. MEDICATIONS AT HOME: Include Lasix 20 mg p.o. daily p.r.n., atorvastatin 40 mg p.o. h.s., MiraLAX 17 g p.o. daily, Robaxin 750 mg p.o. q.i.d. p.r.n., lisinopril 20 mg p.o. daily, gabapentin 300 mg p.o. t.i.d., oxycodone 5 to 10 mg p.o. q.4 hours p.r.n., metformin 1000 mg p.o. b.i.d., amlodipine 10 mg p.o. daily. REVIEW OF SYSTEMS: A 10-point review of systems done on this patient was all negative except as ment ioned above. PHYSICAL EXAMINATION: GENERAL APPEARANCE: Medium-built, mildly overweight male. He is al ert and oriented to person, place, time, and situation. He appears to be under no acute distress at this time. CURRENT VITAL SIGNS. Blood pressure of 147/65. Heart rate of 78, sinus rhythm on the mo nitor with noted episodes of PSVT. Respirations are 16. Saturating 91% on room air. Temperature of 37.4 degrees Celsius. HEENT: Head is normocephalic. Lips and tongue are pink and moist. NECK: T rachea is midline ,+2 carotid pulses bilateral. +2 carotid bruits noted, both carotids. No signific ant JVD. RESPIRATORY: Lungs are clear bilateral. No rhonchi, rales or wheezes. No accessory muscl e use. No intercostal muscle retraction noted. CARDIAC: Regular rate, regular rhythm. S1, S2. 1/ 6 systolic murmur noted along left sternal border. No rubs or gallops noted. ABDOMEN: Soft, nonten la. Bowel sounds x4 quadrants. No organomegaly. No palpable masses. SKIN: [place], warm, dry. No cyanosis, no clubbing, no peripheral edema. VASCULAR: +2 carotids bilateral, +2 radials bilateral, +1 dorsal pedal and posterior tibial pulses bilateral. LABORATORY STUDIES: C difficile positive as mentioned above. Blood cultures as mentioned above. On admission, 08/31, CBC of 6.77, hemoglobin of 11.0, hematocrit of 33.0, platelet count of 98. Today sodium 135, potassium 3.7, chloride 105, CO2 21, BUN 10, creatinine 0.7, glucose 122, calcium 8.4. T roponin 0.012. Repeated troponin done at noon today was less than 0.012. Magnesium 1.9. TSH of 0.1 72. STUDIES: Electrocardiogram as mentioned above. Noting in comparison to electrocardiogram done on Ap ril 25, this is unchanged except for premature beats. Echocardiogram done today noting normal LV sys tolic function with EF of 60% to 65% with mild concentric LVH. No regional wall motion abnormalities . LA was mildly dilated. RA was mildly dilated. Mild MR. There was mild mitral annular calcificat ion. Aortic leaflets exhibit calcification but no aortic stenosis. No significant aortic insufficie ncy. Trivial pericardial effusion which is not mechanically restricted. ASSESSMENT AND PLAN: 1. Chest pain: The patient is reporting episode of chest pain, midsternal, this morning with no ass ociated symptoms of shortness of breath but positive for nausea and diaphoresis. Patient with a sign ificantly abnormal electrocardiogram which potentially shows lateral ischemia. Echocardiogram noting normal LV systolic function with no wall motion abnormalities. Patient with significant cardiac ris k factors of age, hypertension, hyperlipidemia, peripheral vascular disease, diabetes, previous smoke r, and family history of coronary artery disease. The patient has had no further chest pain since th is morning and has had 2 negative troponins, plan on repeating 3rd troponin in 6 hours. If it remain s negative, then he should be evaluated by undergoing Lexiscan MPI study, which if it does come up po sitive, then coronary angiogram should be done. Until then, he has had a dose of aspirin. I have st arted him on a beta marcy of metoprolol tartrate. 2. Paroxysmal supraventricular tachycardia, noted on continuous cardiac monitoring: The patient is asymptomatic of this. The patient is noted to have mildly dilated atriums bilateral. Patient with a significantly low TSH level. Will start him on metoprolol as mentioned above. Continue monitoring him on continuous cardiac monitoring. Will order T3 and T4 levels. 3. Patient with reported history of carotid artery disease: Patient with significant carotid bruits bilateral, multiple cardiac risk factors as mentioned above. Patient has been started on aspirin th erapy. Continue on statin therapy for secondary risk prevention. Blood pressure appears well contro lled. Will have ultrasound done for evaluation of his stenosis. 4. Hypertension: Patient with significant past history of hypertension. He has been resumed on all his home medications except for furosemide, due to his nausea and diarrhea. Will add metoprolol tar trate, as mentioned above. Continue monitoring, adjust as needed. 5. Hyperlipidemia: The patient has been resumed on home statin therapy. We will plan on getting a lipid panel in a.m. for further evaluation. 6. Nausea, vomiting, diarrhea: Patient has been noted to be positive for Clostridium difficile, has been started on vancomycin by Hospitalist Services, defer to their specialty. 7. Chronic back pain: Patient is status post transforaminal lumbar interbody fusion. Will defer pa in management to Neurosurgery. I have also spoken to Neurosurgery's FISH BONING MACHINE FEEDER and discussed if patient need s full anticoagulation or antiplatelet therapy. They report it is fine for him to proceed if necessa ry if he is deemed to need a cath or coronary angiogram. 8. Diabetes: Defer treatment to Hospitalist Services. Thank you for this consultation. We will be glad to follow along with you. I have discussed the pat ient also with Dr. Gibbons of Hospitalist Services and Dr. Mas. /[id number]/MODL
[2018-09-01] MEDS: ATORVASTATIN CALCIUM 40 MG TAB PO SCH (20:52)
[2018-09-01] MEDS: METOPROLOL TARTRATE 25 MG TAB PO SCH (20:52)
[2018-09-02] MEDS: VANCOMYCIN 125 MG/2.5 ML UDL PO SCH ×4 (06:17→21:23)
[2018-09-02] MEDS: INSULIN REGULAR HUMAN 100 UNIT/ML UNIT SC SCH ×4 (08:19→21:24)
[2018-09-02] MEDS ORDERED: REGADENOSON 0.4 MG/5 ML SYR IVP ONE (11:00)
--- NOTE | 2018-09-02 11:59 | CPR ---
[f rep st] NONINVASIVE CARDIAC PROCEDURE REPORT REPORT TITLE: LEXISCAN INJECTION OF LEXISCAN MPI STUDY [facility] W[facility]ER: Dr. Dr. Yao INDICATION: chest pressure, abnormal electrocardiogram, patient unable to run on treadmill. PRE: After obtaining informed consent, ensuring patient's n.p.o. status of caffeine for greater than 12 hours, patient placed on electrocardiogram. Initial EKG shows sinus rhythm, with right bundle br anch block, borderline ST depression in lateral leads, frequent PACs. Initial blood pressure 136/54, saturation 91% on room air. Patient denies of chest pain, pressure, or symptoms suggesting of ische yenni. INJECTION: Patient was given Lexiscan slow IV push, followed by nuclear isotope. Within 1 minute of injection, patient's heart rate increased up to 96 beats per minute, was noted at sometimes to have bigeminal PACs, but no other significant EKG changes. Patient did report shortness of breath and lilly e mild flushing sensation post injection. Within 3 minutes he was given caffeinated brother age, and within 5 minutes, all symptoms subsided, no other significant EKG changes. Within 5 minutes post in jection, heart rate returned back to 83. No significant EKG changes with injection. Final blood pre ssure 142/54, saturating 98% on room air. IMPRESSION: 68-year-old male with episode of chest pressure the night before, abnormal EKG, and mult iple cardiac risk factors to include hypertension, hyperlipidemia, peripheral vascular disease, diabe ephraim, previous smoker, and family history of coronary artery disease, being evaluated for possible car diac ischemia and unable to run on treadmill due to previous back surgery. Patient underwent Lexisca n injection with shortness of breath and flushing sensation, but no chest pressure. No significant E KG changes, except more frequent premature atrial contractions. After 5 minutes, he was pain free, E KG back to baseline, vital signs are stable. He is currently finishing his post-stress imaging pictu res in nuclear medicine at this time. /[id number]/MODL
[2018-09-02] MEDS: METOPROLOL TARTRATE 25 MG TAB PO SCH ×2 (12:13→20:56)
[2018-09-02] MEDS: PANTOPRAZOLE SODIUM 40 MG TAB PO SCH (12:13)
[2018-09-02] MEDS: LISINOPRIL 20 MG TAB PO SCH (12:13)
[2018-09-02] MEDS: NS 1,000 ML IV SCH (12:16)
[2018-09-02] MEDS: GABAPENTIN 300 MG CAP PO SCH ×3 (12:51→20:56)
[2018-09-02] MEDS ORDERED: fentaNYL 100 MCG/2 ML INJ ONE ×2 (13:39→16:03)
[2018-09-02] MEDS ORDERED: LIDOCAINE 1% 300 MG/30 ML SDV ONE (13:39)
[2018-09-02] MEDS ORDERED: MIDAZOLAM 2 MG/2 ML VIAL ONE ×2 (13:39→15:47)
[2018-09-02] MEDS ORDERED: DIAZEPAM 5 MG TAB PO ONE (13:40)
[2018-09-02] MEDS ORDERED: FAMOTIDINE 20 MG TAB PO ONE (13:40)
[2018-09-02] MEDS ORDERED: NS 1,000 ML IV ONE (13:40)
[2018-09-02] MEDS ORDERED: ASPIRIN EC 325 MG TAB PO ONE ×2 (13:40→14:13)
[2018-09-02] MEDS ORDERED: diphenhydrAMINE 25 MG CAP PO ONE ×2 (13:40→14:12)
[2018-09-02] MEDS ORDERED: IOPAMIDOL (ISOVUE-370) 150 ML BTL IV ONE ×2 (13:41→15:27)
--- NOTE | 2018-09-02 14:12 | ASMTCMCOM ---
CM Note CM Note Notes: 09/02/2018 Case Management Note Met w/pt and to discuss d/c needs. Kandi can be reached at [phone]. Pt is currently staying in [facility] in [facility] with plans to visit brother in law in [place] and then sister in [place]. Pt has to be home in [place] by September 06 per Kandi. Pt has follow up with PCP Dr. John Goldsmith at the [facility]. There are no therapy evals ordered today. Case Management d/c poc: independent with follow up as directed. Case Management available if needs change. Date Signed: 09/02/2018 02:09 PM Electronically Signed By:Dianne Chamorro RN
[2018-09-02] MEDS ORDERED: DIAZEPAM 5 MG TAB ONE (14:13)
[2018-09-02] MEDS ORDERED: FAMOTIDINE 20 MG TAB ONE (14:13)
[2018-09-02 14:17] LABS: PLATELET COUNT 294 10^3/uL (150-400)
[2018-09-02] MEDS ORDERED: oxyCODONE IR 5 MG TAB ONE (14:22)
[2018-09-02 14:26] LABS: INR 1.15 (0.83-1.16); PROTIME(PATIENT) 14.2 SEC (12.0-15.0)
[2018-09-02] MEDS: oxyCODONE IR 5 MG TAB PO PRN ×2 (14:26→20:56)
--- NOTE | 2018-09-02 14:45 | PDCARPN ---
Cardiology Progress Note Chief Complaint: Patient reports he is hungry. Assessment/Plan: Assessment: 68-year-old male with significant past history that includes hypertension, hyperlipidemia borderline diabetes previous smoker carotid artery disease and family history coronary artery disease (father dying of an age 63), admitted on 08/31/2018 for nausea, vomiting, diarrhea. Positive C diff. Recent L4-L5 TLIF on August 25. 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 Electrocardiogram done at time pressure, showing sinus rhythm, right bundle branch block, T-wave abnormalities suggesting possible lateral ischemia. On continuous cardiac monitoring noting sinus rhythm frequent PACs and runs of PSVT (atrial tachycardia). Echo 09/01/2018 noting normal LV size with normal LV systolic function, EF 60 65%, mild concentric LVH, no wall motion abnormalities, LA is mildly dilated, RA is mildly dilated, mild MR, mitral annular calcification, aortic root 3.5 cm , ascending aorta 3.2 cm. Negative troponin x3. Patient has significant carotid bruits on examination. Carotid ultrasound showing 50- 60 bilateral 2 external carotid artery stenosis with no internal carotid artery flow limiting stenosis 09/02/2018: Patient reports no chest pain or pressure throughout the night. MPI study showing normal LV systolic function with EF 62%, with possible myocardial ischemia involving inferior wall. Continues cardiac monitoring showing less runs of SVT since starting on metoprolol. TSH was noted to be 0.172. Plan: 1. Chest pressure: Patient reporting 1 episode of chest pressure 2 nights ago. Negative troponin x3. Echocardiogram showing no wall motion abnormalities. Patient with abnormal MPI study suggesting of ischemia. Patient with multiple cardiac risk factors that include age, sex, hypertension, previous smoker, hypertensive lipidemia, peripheral vascular disease, and family history of coronary artery disease with father dying of DC at age 63. Due to his multiple cardiac risk factors, abnormal MPI study, and abnormal electrocardiogram, is felt best that he be further evaluated for cardiac ischemia, undergoing coronary angiogram. Risks and benefits of this procedure were explained to both his and patient, they verbalize understanding and are wanting to proceed. We have checked with Neurosurgery, and they have okayed him for any anticoagulation needed. 2. PSVT: Patient noted to have runs of PSVT, appear to be atrial tachycardia, started on beta-marcy of metoprolol. Improvement overnight with less arrhythmias. Potassium and magnesium within normal limits. Low TSH. 3. Hypertension: Blood pressure within normal limits. Continue a regular current medication regime. 4. Hyperlipidemia: LDL 46 on labs today, showing adequate suppression. Continue on home dose of atorvastatin. 5. Carotid artery stenosis: Non flow limiting based off echocardiogram. Continue anti-platelet therapy. Continue statin therapy as mentioned above. Modify risk factors. 6. Low TSH: Defer to hospital services further evaluation 7. Diabetes: Patient on sliding scale insulin. Defer to hospital services. 8. Status post L4-5 TLIF: Defer to Neurosurgery. 9. C diff: Being hydrated due to nausea, vomiting, diarrhea. Appears fairly euvolemic. Patient has been started on oral vancomycin. 09/02/18 14:42 Subjective: Patient reports no further episodes of chest pain. Reports no shortness of breath, denies of any palpitations. Reviewed/Discussed With: hospitalist (Dr Torres), other (Dr Yao) Objective: Vital Signs (8 Hrs) Temp Pulse Resp BP Pulse Ox 09/02/18 11:51 37.1 C 67 18 155/59 H 94 09/02/18 08:00 37.3 C 62 18 121/54 H 90 L Intake/Output (24 Hrs) 09/01/18 09/02/18 09/03/18 05:59 05:59 05:59 Intake Total 450 1007 Balance 450 1007 Intake: Oral (ml) 450 IV Infused (ml) 1007 Ns 1,000 ml @ 100 mls/hr 1007 IV CONT HUSEYIN Rx#: [id number] Other: Intake Quantity Yes Sufficient Number of Voids Toilet 4 1 Number of Stools Toilet 1 1 Result Diagrams: 09/02/18 14:05 09/02/18 03:06 Cardiac Labs: Cardiac Lab Results (72 Hrs) 09/01/18 09/01/18 09/01/18 18:04 13:05 07:58 Troponin I < 0.012 < 0.012 0.012 - Physical Exam Constitutional: WDWN, no apparent distress Ears, Nose, Mouth, Throat: moist mucous membranes Cardiovascular: pulses symmetric bilat, carotid bruit (+2 bilateral), No jugular vein distention Peripheral Pulses: 1+: dorsalis-pedis (R), dorsalis-pedis (L), 2+: carotid (R), carotid (L) Respiratory: clear to auscultate bilat, no crackles, no wheezes Gastrointestinal: normoactive bowel sounds, no tenderness, no masses Skin: warm Neurologic: AAOx3 Psychiatric: cooperative, interactive, following commands ICD10 Worksheet Patient Problems: Problems Problem Status Onset Fusion of spine of lumbar region Acute Vomiting and diarrhea Acute Dehydration Acute Fever Acute
[2018-09-02] MEDS ORDERED: CLOPIDOGREL BISULFATE 75 MG TAB ONE (15:17)
[2018-09-02] MEDS ORDERED: BIVALIRUDIN 250 MG/5 ML VIAL IV ONE ×2 (15:23→16:03)
[2018-09-02] MEDS ORDERED: NITROGLYCERIN 1,500 MCG/15 ML VIAL MISC ONE (15:23)
[2018-09-02] MEDS ORDERED: ATROPINE SULFATE 1 MG/10 ML SYR ONE (15:27)
[2018-09-02] MEDS ORDERED: hydrALAZINE 20 MG/ML VIAL ONE (16:12)
--- NOTE | 2018-09-02 16:23 | HOSPPROG ---
Hospitalist Progress Note Assessment/Plan: The patient is a 68-year-old male with PMH C diff colitis, chronic low back pain who was admitted for abdominal pain, developed chest pain, and underwent abnormal stress test which led to cardiac catheterization with stent placement. ASSESSMENT/PLAN: CAD, s/p stents x 3 Angina, resolved Abd pain, resolved N/V, resolved Recent C diff colitis, resolving on Tx Overweight HTN HLD JUAN MANUEL DM2 Chronic low back pain -Monitor overnight w/ telemetry. -on statin, lisinopril, metoprolol. -Received 1 dose ASA/Plavix this afternoon. Continue DAP x 1 yr. -If no acute o/n complications, may DC to home in AM. VTE prophylaxis: SCDs Code Status: Full code Status: Inpatient Disposition: Med tele with discharge anticipated tomorrow ____ SUBJECTIVE: Patient was seen after his cardiac catheterization. He feels well , no complaints. OBJECTIVE: Physical Exam: General: The patient is an overweight male who is alert and in no acute distress. HEENT: normocephalic, extraocular movements intact, conjunctivae clear. Mucous membranes moist. Neck: trachea midline, no visible masses. CV: +S1/S2, RRR, no MRG. Resp: unlabored, CTAB no RRW. Abd: soft and nondistended. Musculoskeletal: Normal muscle tone/bulk. Neuro: cranial nerves II - XII grossly intact. Intact gross motor and sensory function. Psych: Appropriate mood and appropriate affect. Skin: No pallor. No petechiae. Heme/lymph: No peripheral edema at bilateral lower extremities. Labs/Imaging/Other Tests: Personally reviewed/interpreted. Objective: Vital Signs Temp Pulse Resp BP Pulse Ox 37.1 C 67 18 155/59 H 94 09/02/18 11:51 09/02/18 11:51 09/02/18 11:51 09/02/18 11:51 09/02/18 11:51 Laboratory Results 09/02/18 14:05 09/02/18 14:05 09/01/18 09/02/18 09/03/18 05:59 05:59 05:59 Intake Total 450 1007 Balance 450 1007 PT 14.2 SEC (12.0-15.0) 09/02/18 14:05 INR 1.15 (0.83-1.16) 09/02/18 14:05 - Time Spent With Patient Time Spent with Patient: greater than 35 minutes Time Spent with Patient: Greater than 35 minutes spent on this patients care, greater than 50% of time spent counseling, educating, and coordinating care regarding the above mentioned plan. ICD10 Worksheet Patient Problems: Problems Problem Status Onset Dehydration Acute Fever Acute Vomiting and diarrhea Acute Fusion of spine of lumbar region Acute
--- NOTE | 2018-09-02 17:05 | CPIP ---
[f rep st] INVASIVE CARDIAC PROCEDURE DATE OF PROCEDURE: 09/02/2018 INDICATION FOR PROCEDURE: Chest pain, abnormal EKG, positive stress test. PROCEDURE: 1. Nonselective left groin sheathogram. 2. Bilateral coronary angiography, left heart catheterization, left ventriculogram. 3. Percutaneous coronary intervention of mid and proximal right coronary artery utilizing 2 Synergy drug-eluting stents. 4. Percutaneous coronary intervention of mid left anterior descending, utilizing Synergy drug-elutin g stent. HISTORY: This is a 68-year-old male with history of recent back surgery. Postprocedure, the patient has been having chest pain and had what looked like a grossly abnormal baseline EKG. He underwent a stress test today which showed inferior ischemia. Given these findings, patient consented for invas katie angiography. DESCRIPTION OF PROCEDURE: After informed consent, the patient was brought to [facility], where the left maximiliano in was prepped and draped in sterile fashion. Using lidocaine and a short 6-Marshallese sheath, the left common femoral artery was verified angiographically. Through the 6-Marshallese sheath, a JL4 catheter was advanced in the left coronary artery. Images of the left coronary artery revealed normal left main. Left circumflex had ostial 30% disease. The circumflex gave off marginal arteries which were healt hy and free of disease proximally and turned into a larger bifurcating marginal artery distally, whic h was healthy and free of disease and terminated in an AV groove circumflex, which was healthy and fr ee of disease. The LAD was a long vessel, wrapped around the apex. In the midportion of the LAD at its take-off of the septal coper hand, there was a focal 70% lesion. There were multiple diagonal ar teries coming off the LAD, which were healthy and free of disease. After this image was obtained, th e JL4 catheter was removed. The JR4 catheter was advanced to the right coronary artery. Images of t he right coronary artery revealed normal ostial RCA. Proximal RCA had a 70% lesion, followed by anot her area of 80% to 90% lesion, followed by a 3rd lesion in the vessel of approximately 60% to 70%. D istally, the RPDA appeared to be healthy and free of disease. The RPLS had 30% to 40% disease in the superior branch. After these images were obtained, the JR4 catheter was removed. A pigtail cathete r was advanced into the left ventricle. EDP 16 mmHg. Left ventriculogram was taken in the REEVES proje ction showed an EF of 65% with no wall motion abnormalities. No pullback gradient between the LV and the aorta. Pigtail catheter was removed over a 0.035 wire. INTERVENTIONAL REPORT: At this time, the patient was initiated on Angiomax bolus and drip. A JR4 6- Marshallese guide was advanced to the right coronary artery. A Choice PT wire was placed down to the RPDA . Predilatation commenced with a 3.5 x 12 balloon across all 3 tandem lesions in the RCA at 10 atmos pheres. After this was performed, we then attempted to proceed with the placement of a long 3.0 x 38 mm drug-eluting stent. This was not successful. We placed a 2nd nayeli wire in and then re-attempte d placing the wire, which was successful. The nayeli wire was removed, and the stent was deployed at 16 atmospheres. We then proceeded to place a 3.5 x 16 stent across the proximal lesion, which was ov erlapping the previous stent, and this was deployed at 16 atmospheres. We then utilized a 3.5 x 12 n oncompliant balloon to post-dilate the mid section of the stented area at 14 atmospheres. After this was performed, the balloon was removed. Angiogram was obtained which showed excellent patency of th e stented areas with no evidence of dissection or perforation. At this time, the wire was removed. The guide catheter was removed. The EBU 3.5 guide catheter was advanced to the left coronary artery. A Choice PT wire was placed down the LAD. A 3.5 x 12 balloon was then advanced, and dilatation of the lesion in the mid LAD was performed at 10 atmospheres. After this was performed, angiographic im ages were obtained, which showed improved patency of the area. We then proceeded with attempted plac ement of a 3.5 x 12 Synergy drug-eluting stent. However, this was unsuccessful to pass. We then eliza zonia a GuideLiner and then placed the stent, which then would successfully traverse this area. We dep loyed the stent at 16 atmospheres. After deployment, angiogram was obtained which showed excellent p atency of the stented area with no evidence of dissection or perforation. At this time, the wire was removed. The guide catheter was removed. The left groin was closed with a 6-Marshallese Angio-Seal. Th e patient tolerated the procedure well with no complications. IMPRESSION: 1. Successful percutaneous coronary intervention of high-grade proximal mid right coronary artery di sease with 2 Synergy drug-eluting stents. 2. Successful percutaneous coronary intervention of mid left anterior descending with 1 Synergy drug -eluting stent. 3. Mild disease in the left circumflex system. 4. Normal ejection fraction. PLAN: The patient will have 3 hours of bedrest. Will remain on aspirin and Plavix for at least 1 ye ar's time. /[id number]/MODL
[2018-09-02] MEDS ORDERED: ATROPINE SULFATE 1 MG/10 ML SYR IVP PRN (17:21)
[2018-09-02] MEDS ORDERED: HYDROCODONE/APAP 5/325 TAB PO PRN (17:21)
[2018-09-02] MEDS: ATORVASTATIN CALCIUM 40 MG TAB PO SCH (20:57)
[2018-09-03 04:47] LABS: PLATELET COUNT 304 10^3/uL (150-400)
[2018-09-03] MEDS: VANCOMYCIN 125 MG/2.5 ML UDL PO SCH ×2 (06:27→11:48)
[2018-09-03] MEDS ORDERED: MAGNESIUM SULF 1 GM/DEXTROSE 100 ML IV ONE (07:41)
[2018-09-03] MEDS: PANTOPRAZOLE SODIUM 40 MG TAB PO SCH (08:01)
[2018-09-03] MEDS: GABAPENTIN 300 MG CAP PO SCH (08:01)
[2018-09-03] MEDS: LISINOPRIL 20 MG TAB PO SCH (08:01)
--- NOTE | 2018-09-03 08:10 | PDCARPN ---
Cardiology Progress Note Chief Complaint: Patient reports he like to go home. Assessment/Plan: Assessment: 68-year-old male with significant past history that includes hypertension, hyperlipidemia borderline diabetes previous smoker carotid artery disease and family history coronary artery disease (father dying of an age 63), admitted on 08/31/2018 for nausea, vomiting, diarrhea. Positive C diff. Recent L4-L5 TLIF on August 25. Episode of chest pressure slip sheeter 09/01. Electrocardiogram done at time pressure, showing sinus rhythm, right bundle branch block, T-wave abnormalities suggesting possible lateral ischemia. On continuous cardiac monitoring noting sinus rhythm frequent PACs and runs of PSVT (atrial tachycardia). Echo 09/01/2018 noting normal LV size with normal LV systolic function, EF 60 65%, mild concentric LVH, no wall motion abnormalities, LA is mildly dilated, RA is mildly dilated, mild MR, mitral annular calcification, aortic root 3.5 cm , ascending aorta 3.2 cm. Negative troponin x3. Patient has significant carotid bruits on examination. Carotid ultrasound showing 50- 60 bilateral 2 external carotid artery stenosis with no internal carotid artery flow limiting stenosis. 09/02/2018 left heart catheterization was done. RCA had 3 lesions, 70% proximal, 80% proximal mid, 90% mid lesion the RCA. Patient also had a proximal midportion 70% lesion the LAD. PCI was done 3 0 x 38 and 3 5 x 16 synergy ANN in the mid to proximal RCA. A 3 5 x 12 synergy ANN implanted in the mid proximal LAD. No complications. 09/03/2018: Patient reports no chest pain pressure symptoms suggesting of ischemia throughout the night. Continues cardiac monitoring showing sinus rhythm, patient noting to have more runs of atrial tachycardia asthma rates to 120 BPM. He is asymptomatic. Laboratories today showing 11, creatinine 0 7 magnesium 1.8 sodium 134, potassium 4.1. Plan: 1. CAD: Patient reporting episode chest pressure. Abnormal MPI, coronary angiogram findings stenosis LAD and RCA. 2 ANN implantation in to RCA, 1 ANN implantation to the LAD yesterday. No complications. Patient reporting no chest pain pressure symptoms suggesting of ischemia. Patient has been started on dual anti-platelet therapy of aspirin and clopidogrel. He will need to stay on for minimum of a year. He continues on atorvastatin, adequate suppression of LDL. Patient is scheduled to see Cardiology at his home in [place] on September 06. 2. PSVT: Patient noted to have runs of PSVT, appear to be atrial tachycardia, started on beta-marcy of metoprolol. Initially improved, this morning noting more runs. TSH is low. Magnesium 1.8. Will supplement magnesium, increased metoprolol to 50 mg p.o. Twice daily. Consideration of patient having an outpatient Holter monitoring, this can be ordered at his primary [facility] in [place]. Would recommend with increased metoprolol this morning, he be monitored this morning, if he is doing fine may be discharged later this afternoon. 3. Hypertension: BP with systolic running in 150s this morning. Increase metoprolol tartrate as mentioned above, no change the rest of his medication regime. 4. Hyperlipidemia: Laboratory studies show shown adequate suppression of LDL. Continue on home dose of atorvastatin. 5. Carotid artery stenosis: Non flow limiting based off echocardiogram. Continue anti-platelet therapy. Continue statin therapy as mentioned above. Would recommend patient have a repeated ultrasound of carotids in 6 months for re-evaluation. This can be done by his primary [facility] in [place]. 6. Low TSH: Defer to hospital services further evaluation 7. Diabetes: Patient on sliding scale insulin. Defer to hospital services. 8. Status post L4-5 TLIF: Defer to Neurosurgery. 9. C diff: Being hydrated due to nausea, vomiting, diarrhea. Appears fairly euvolemic. Patient has been started on oral vancomycin. Patient potentially will be discharged today. Post cardiac catheterization with PCI teaching Done him, including monitoring for signs of infection, bleeding precautions, and activity restrictions. Importance of dual anti- platelet therapy have been expressed to the patient, especially with recent ANN implantation. Patient is planning to be followed up with his primary [facility] in [place] on September 06. 09/03/18 08:09 Subjective: He denies of any chest pressure or pain. Reports no shortness of breath, denies of any orthopnea, PND, palpitations, lightheadedness, near-syncope or syncopal events. Reviewed/Discussed With: other (Dr Hayden) Objective: Vital Signs (8 Hrs) Temp Pulse Resp BP Pulse Ox 09/03/18 08:03 88 150/55 H 09/03/18 07:32 37.1 C 65 12 128/62 H 94 09/03/18 03:14 37.2 C 74 15 145/60 H 94 Intake/Output (24 Hrs) 09/02/18 09/03/1809/04/19 05:59 05:59 05:59 Intake Total 1007 3627 Output Total 1275 Balance 1007 2352 Intake: Oral (ml) 810 IV Infused (ml) 1007 2817 Ns 1,000 ml @ 100 mls/hr 1007 2817 IV CONT HUSEYIN Rx#: [id number] Output: Urine (ml) 1275 Toilet 500 Urinal 775 Other: Number of Voids Toilet 1 Urinal 2 Number of Stools Toilet 1 Result Diagrams: 09/03/18 03:10 09/03/18 03:10 Cardiac Labs: Cardiac Lab Results (72 Hrs) 09/01/18 09/01/18 09/01/18 18:04 13:05 07:58 Troponin I < 0.012 < 0.012 0.012 - Physical Exam Constitutional: WDWN, no apparent distress Ears, Nose, Mouth, Throat: moist mucous membranes Cardiovascular: regular rate and rhythm, systolic murmur (1/6 left sternal border), carotid bruit (+2 bilateral), No jugular vein distention Peripheral Pulses: 1+: dorsalis-pedis (R), dorsalis-pedis (L), 2+: carotid (R), carotid (L) Respiratory: clear to auscultate bilat, no crackles, no wheezes Gastrointestinal: normoactive bowel sounds Skin: no edema, other (Left groin site, catheter insertion site, with no redness , swelling, drainage, or ecchymosis. No hematoma. No auscultated bruit.) Neurologic: AAOx3 Psychiatric: cooperative, interactive, following commands ICD10 Worksheet Patient Problems: Problems Problem Status Onset Fusion of spine of lumbar region Acute Vomiting and diarrhea Acute Dehydration Acute Fever Acute
[2018-09-03] MEDS: INSULIN REGULAR HUMAN 100 UNIT/ML UNIT SC SCH ×2 (08:19→13:26)
[2018-09-03] MEDS ORDERED: ASPIRIN 81 MG CHEWABLE TAB PO SCH (09:00)
[2018-09-03] MEDS ORDERED: CLOPIDOGREL BISULFATE 75 MG TAB PO SCH (09:00)
[2018-09-03] MEDS ORDERED: METOPROLOL TARTRATE 50 MG TAB PO SCH (09:00)
[2018-09-03 11:39] VITALS: BP 132/52
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
--- NOTE | 2018-09-03 15:06 | ASMTDCNOTE ---
Case Management Discharge Discharge Order Complete? Answers: Yes Patient to Obtain Answers: Independently Medications Transportation Arranged Answers: Family/Friends Discharge Comments Notes: 09/03/2018 Case Management Note Pt discharged independent with follow up as directed. Pt and returning to [place] directly from [facility]. Date Signed: 09/03/2018 03:06 PM Electronically Signed By:Dianne Chamorro RN
--- NOTE | 2018-09-03 15:07 | ASDISCHSUM ---
Discharge Information Plan Status:Home with No Needs Medically Cleared to Leave:09/03/2018 Discharge Date:09/03/2018 02:38 PM CM D/C Disposition:Home, Routine, Self-Care ADT D/C Disposition:Home, Routine, Self-Care Projected Discharge Date:09/03/2018 02:38 PM Transportation at D/C:Family Discharge Delay Reason: Follow-Up Date:09/03/2018 02:38 PM Discharge Slot: Final Diagnosis: Placement Information Patient Contact Information Contact Name:FELY Relationship: Address: Work Phone: City: [facility] Phone: [facility]/[employer] Code: Email: Financial Information Financial Class:Medicare Primary Plan Desc:MEDICARE INPATIENT Primary Plan Number:[id number] Secondary Plan Desc:[place] Secondary Plan Number:[id number] Assessment Information LACE LACE Length of stay for Answers: 2 days current admission Acuity / Level of Answers: Yes Care: Did the patient have an inpatient admission? Comorbidities - select Answers: Coronary Artery Disease all that apply Diabetes (uncontrolled or controlled) Opioid dependence / Chronic pain Other Notes: HTN; HLD # of Emergency department Answers: 1-2 visits in the last 6 months Score: 14 Date Signed: 09/03/2018 03:05 PM Electronically Signed By:Dianne Chamorro RN [facility] Initial CM Assessment Living Arrangements What is your living Answers: With Spouse arrangement? Who do you live with? Type Of Residence What kind of residence do Answers: Apartment you live in? Discharge Plan Comments Coordination Status Comments Notes: Patient is a 68yo male who is being admitted OBS for nausea, vomiting, diarrhea, fever, and dehydration. No therapies ordered at this time. Likely patient will discharge independent. CM will follow. Date Signed: 08/31/2018 10:51 AM Electronically Signed By:Elsa Mccarthy LCSW [facility] CM Progress Note CM Note CM Note Notes: 09/02/2018 Case Management Note Met w/pt and to discuss d/c needs. Kandi can be reached at [phone]. Pt is currently staying in [facility] with plans to visit brother in law in [place] and then sister in [place]. Pt has to be home in [place] by September 06 per Kandi. Pt has follow up with PCP Dr. John Goldsmith at the [facility]. There are no therapy evals ordered today. Case Management d/c poc: independent with follow up as directed. Case Management available if needs change. Date Signed: 09/02/2018 02:09 PM Electronically Signed By:Dianne Chamorro RN Case Management Discharge Plan Note Case Management Discharge Discharge Order Complete? Answers: Yes Patient to Obtain Answers: Independently Medications Transportation Arranged Answers: Family/Friends Discharge Comments Notes: 09/03/2018 Case Management Note Pt discharged independent with follow up as directed. Pt and returning to [place] directly from [facility]. Date Signed: 09/03/2018 03:06 PM Electronically Signed By:Dianne Chamorro RN Intervention Information Intervention Type:*CHOPRA-Signed Date of Service:08/31/2018 10:34 AM Patient Type:Observation Staff Member:Ana Carmona Hours: Discipline: Severity: Comment:
--- NOTE | 2018-09-03 23:13 | PDDCSUM ---
Discharge Summary Discharge Summary: Discharge diagnoses: CAD, s/p PCI w/ stents x 3 C diff colitis, improving on Tx PSVT, controlled HLD HTN Overweight Chronic low back pain Hospital course: The patient is a 68yo M w/ PMH L4-5 TLIF visiting from [place] who was admitted for nausea, vomiting, and diarrhea. He was found to have C. difficile colitis. He was treated with IV fluids and oral vancomycin. His back pain flared and neurosurgery was consulted, recommending medical management. The following night , he developed acute chest pain without troponin elevation. EKG suggested lateral ischemia. Echocardiogram was fairly normal with mild changes. Cardiology was consulted and recommended a cardiac stress test which suggested inferior myocardial ischemia. The patient underwent a L cardiac catheterization with revealed stenosis in the RCA x 3 and the LAD x 1. He received PCI w/ ANN placement x 2 to the RCA and x 1 to the mid LAD. He had PSVT on telemetry, appearing to be atrial tachycardia, and was started on metoprolol. His LDL was 46, indicating no need to change the dose of atorvastatin. He was found to have carotid artery stenosis about 50-60% bilaterally on ultrasound. His TSH 0.172, but this could be transient secondary to an inflammatory thyroiditis associated with acute infection and/or cardiac ischemia. It is recommended that TSH be rechecked after about 6 weeks. The patient was feeling well the day after the angiogram and was discharged to home in stable condition after being in the hospital for 3 days. Meds: New meds: aspirin 81mg daily, clopidogrel 75mg daily, metoprolol tartrate 50mg BID, vancomycin 125mg QID x 7 more days (10 days total). Resume other home meds. Provided refill of oxycodone 5mg prn pain #28. Follow up: PCP in 1 week. [facility] in 1 week. Special instructions: Avoid bending and twisting Do not lift greater than 10 pounds Ok to shower Do not submerge incision Avoid NSAIDs x6 months Groin precaution: 1. No lifting more the 5-10 pounds for 1 week 2. May shower but no bath, hot tubs or swimming pool (no stand water submersion ) until all insertion site are healed 3. Keep band aid on insertion site if clothing causes pressure on the insertion site 4. Watch for sign of infection (fever, redness, swelling, drainage, night sweat or chills) Call Dr Jean-Baptiste's office immediately if you have any of these symptoms [phone]. 5. If you notice a large amount of bleeding at site, hold press over it and call [phone] 6. No strenuous exercise for 2 weeks 7. Take aspirin 81 mg p.o. Daily. 8. Take clopidogrel 75 mg p.o. Daily 9. Follow up with her primary master dyer in [place] on September 06 as planned.
--- NOTE | 2018-09-05 10:39 | CPEKG ---
Test Reason : OPEN Blood Pressure : / mmHG Vent. Rate : 064 BPM Atrial Rate : 064 BPM P-R Int : 118 ms QRS Dur : 134 ms QT Int : 413 ms P-R-T Axes : -17 053 118 degrees QTc Int : 426 ms Sinus rhythm Atrial premature complex Right bundle branch block Repol abnrm, prob ischemia, anterolateral lds Confirmed by Jordon Yao ([id number] on 09/05/2018 10:39:35 AM Referred By: Olga Siegel Confirmed By:Jordon Yao
--- NOTE | 2018-09-07 20:09 | CPEKG ---
Test Reason : OPEN Blood Pressure : / mmHG Vent. Rate : 071 BPM Atrial Rate : 075 BPM P-R Int : 172 ms QRS Dur : 135 ms QT Int : 388 ms P-R-T Axes : 060 071 068 degrees QTc Int : 422 ms Sinus rhythm Supraventricular bigeminy Right bundle branch block Repol abnrm suggests ischemia, lateral leads Similar to prior Confirmed by Al Hayden ([id number]) on 09/07/2018 8:08:52 PM Referred By: Olga Siegel Confirmed By:Al Hayden
--- NOTE | 2018-09-07 20:34 | CPEKG ---
Test Reason : OPEN Blood Pressure : / mmHG Vent. Rate : 077 BPM Atrial Rate : 120 BPM P-R Int : 140 ms QRS Dur : 140 ms QT Int : 524 ms P-R-T Axes : 047 082 -43 degrees QTc Int : 594 ms Sinus rhythm Atrial premature complexes Right bundle branch block Atrial bigeminy Confirmed by Al Hayden ([id number]) on 09/07/2018 8:33:30 PM Referred By: Olga Siegel Confirmed By:Al Hayden
--- NOTE | 2018-09-07 20:37 | CPEKG ---
Test Reason : OPEN Blood Pressure : / mmHG Vent. Rate : 070 BPM Atrial Rate : 069 BPM P-R Int : 166 ms QRS Dur : 142 ms QT Int : 428 ms P-R-T Axes : 062 076 049 degrees QTc Int : 462 ms Sinus rhythm Right bundle branch block Atrial ectopy is absent in this ECG Confirmed by Al Hayden ([id number]) on 09/07/2018 8:36:57 PM Referred By: Olga Siegel Confirmed By:Al Hayden
== END 2018-09-03 14:38 | disposition home or self-care (01) | DRG 982 ==
LOC: F3E 22:58 → OBSVTOIN 08-31 15:31 → F3E 09-01 14:48 → F2W 09-01 15:00
PROVIDERS: ADMIT Internal Medicine; ATTEND Internal Medicine
DX: A04.72 Enterocolitis due to Clostridium difficile, not specified as recurrent (principal); I25.10 Atherosclerotic heart disease of native coronary artery without angina pectoris; E86.0 Dehydration; D62 Acute posthemorrhagic anemia; I47.1 Supraventricular tachycardia; E03.9 Hypothyroidism, unspecified; I51.3 Intracardiac thrombosis, not elsewhere classified; I10 Essential (primary) hypertension; E11.9 Type 2 diabetes mellitus without complications; G47.33 Obstructive sleep apnea (adult) (pediatric); E78.5 Hyperlipidemia, unspecified; Z98.1 Arthrodesis status; Z87.891 Personal history of nicotine dependence; E66.3 Overweight
CPT/HCPCS: 96374; A9500; C1725; C1760; C1769; C1874; C1887; C9600; G0378; J0360; J0461; J0583; J1644; J1815; J2250; J2405; J2785; J3010; J3475; Q9967